=== PATIENT | male | born 1960 ===

== ENCOUNTER 2023-10-03 10:34 | Outpatient (REF) | payer BC, SELFPAY ==
[2023-10-03 13:57] LABS: Estimated Average Glucose 137 mg/dL; Hemoglobin A1c % 6.4 % (<6.0)
[2023-10-03 14:19] LABS: Alanine Aminotransferase 23 U/L (0-40); Albumin Level 4.2 g/dL (3.5-5.0); Alkaline Phosphatase 65 U/L (39-117); Anion Gap 11 (12-20); Aspartate Amino Transferase 16 U/L (5-37); Bilirubin Total 0.5 mg/dL (0.0-1.0); Blood Urea Nitrogen 11 mg/dL (9-16); Carbon Dioxide 26 mmol/L (22-29); Chloride 105 mmol/L (96-108); Cholesterol 251 mg/dL (<200); Estimated Glomerular Filt Rate > 60; Glucose Random 111 mg/dL (60-115); HDL Cholesterol 41 mg/dL (>40); LDL Cholesterol Calculated 162 mg/dL (<100); Potassium 3.9 mmol/L (3.3-5.1); Sodium 138 mmol/L (135-145); Total Protein 7.6 g/dL (6.5-8.0); Triglycerides 244 mg/dL (<150)
== END 2023-10-03 10:35 | disposition home or self-care (01) ==
LOC: HO.HHCL 10:34
PROVIDERS: Visit Provider General Practice
DX: Z00.00 Encounter for general adult medical examination without abnormal findings (principal); Z13.6 Encounter for screening for cardiovascular disorders
CPT/HCPCS: 36415; 80053; 80061; 83036

== ENCOUNTER 2023-11-21 14:48 | Outpatient (REF) | payer BC, SELFPAY ==
--- NOTE | ~2023-11-21 | XR_ITS ---
EXAMINATION: XR ELBOW, LEFT CLINICAL INFORMATION: Injury. Fall one week ago COMPARISON: None available. TECHNIQUE: AP, lateral, and oblique views of the left elbow. FINDINGS: There is a large joint effusion. A small ossific density is seen in the region of the coronoid process on the lateral view and adjacent to the capitellum on one of the oblique views suggestive of a small chip fracture, likely of the capitellum. Joint spaces are within normal limits. XR/XR elbow LT min 3V IMPRESSION: 1. Large joint effusion. 2. Probable small chip fracture of the capitellum of the ulna. CT scan could be obtained for further evaluation.
== END 2023-11-21 14:49 | disposition home or self-care (01) ==
LOC: HO.HHCX 14:48
PROVIDERS: Visit Provider Registered Nurse
DX: M25.522 Pain in left elbow (principal)
CPT/HCPCS: 73080

== ENCOUNTER 2024-01-30 12:15 | Outpatient (REF) | payer BC, SELFPAY ==
[2024-01-30 13:59] LABS: Ferritin 382 ng/mL (20-250)
== END 2024-01-30 12:16 | disposition home or self-care (01) ==
LOC: HO.HHCL 12:15
PROVIDERS: Visit Provider General Practice
DX: A08.11 Acute gastroenteropathy due to Norwalk agent (principal)
CPT/HCPCS: 36415; 82728

== ENCOUNTER 2024-03-14 13:31 | Outpatient (REF) | payer BC, SELFPAY ==
[2024-03-14 16:48] LABS: Ferritin 382 ng/mL (20-250)
== END 2024-03-14 13:32 | disposition home or self-care (01) ==
LOC: HO.HHCL 13:31
PROVIDERS: Visit Provider General Practice
DX: A08.11 Acute gastroenteropathy due to Norwalk agent (principal)
CPT/HCPCS: 36415; 82728

== ENCOUNTER 2024-10-22 14:09 | Outpatient (REF) | payer BC, SELFPAY ==
[2024-10-22 16:11] LABS: MANUAL DIFF FLAG NO
[2024-10-22 16:17] LABS: Basophils Absolute Auto 0.1 X10*3/uL (0.0-0.2); Eosinophils Absolute Auto 0.2 X10*3/uL (0.0-0.4); Eosinophils Percent Auto 2.5 % (0-4); Hemoglobin 15.9 g/dl (14.0-18.0); Imm Gran Abs Auto 0.02 X10*3/uL (0.00-0.03); Imm Gran Pct Auto 0.3 % (0.0-0.4); Lymphocytes Percent Auto 32.9 % (20-40); Mean Corpuscular HGB Conc 36.1 g/dl (31.0-36.0); Mean Corpuscular Hemoglobin 31.6 pg (27.0-33.0); Mean Corpuscular Volume 87.5 fL (80.0-98.0); Mean Platelet Volume 12.1 fL (9.4-12.4); Monocytes Absolute Auto 0.7 X10*3/uL (0.1-1.2); Monocytes Percent Auto 11.8 % (2-11); Neutrophils Absolute Auto 3.1 x10*3/uL (2.0-8.3); Neutrophils Percent Auto 51.5 % (45-73); Platelet Count 211 X10*3/uL (160-400); Red Blood Count 5.03 X10*6/uL (4.60-5.80); Red Cell Distribution Width 12.3 % (11.0-16.0)
--- OUTSIDE RECORDS SUMMARY | 2024-10-22 16:55 | XMS_ITS | Clinical Summary ---
Author Organization [email or web address] Address [address] [facility] [address] [place] [address] Care Team Providers Care Time Clock Mechanic Name Role Phone Trang Anthony MD Primary Care Provider [phone] Allergies Active Allergy Reactions Criticality Noted Date Comments Penicillin V Rash Low 11/20/2008 Medications Blood Pressure Monitoring (Blood Pressure Cuff) miscIndications:E levated blood pressure reading in office without diagnosis of hypertension 1 each in the morning. 1 each 4 Active fish oil ([place]-3) 500 MG capsule Take 1 capsule (500 mg) by mouth in the morning. 180 capsule 3 4 Active ibuprofen 600 MG tabletIndications :Left elbow pain TAKE 1 TABLET BY MOUTH EVERY 8 HOURS FOR PAIN 30 tablet 1 4 Active acetaminophen (Tylenol) 325 MG tablet Take 650 mg by mouth. 7 Active Active Problems Problem Noted Date Diagnosed Date Elevated ferritin 04/18/2024 Assessment & Plan (04/18/2024 12:56 PM EDT): No clear reason for elevated ferritin, he declines to have his blood drawn currently due to recent hematoma after blood draw He prefers to continue to eat healthfully, exercise and recheck his ferritin and transferrin saturation after his colonoscopy is complete Prostate carcinoma 04/14/2024 Risk for coronary artery dis ease greater than 20% in next 10 years 02/03/2024 Overview (02/03/2024): Per ACC calculator Assessment & Plan (02/03/2024 8:22 AM EDT): Pt declines prescription of statin medication citing concerns over side effects Willing to take fish oil daily, continue to do some and will recheck lipids in 6-12 months Healthy adult on routine physical examination Elevated blood pressure read ing in office without diagnosis of hypertension 10/03/2023 Assessment & Plan (10/03/2023 11:24 AM EDT): BP cuff ordered to our pharmacy, check BP daily May need low dose ACEi/ARB Urge incontinence of urine 10/03/2023 Assessment & Plan (10/03/2023 11:25 AM EDT): Will refer to urology, symptoms are bothersome and he has not been seen for them Change in stool caliber 10/03/2023 Assessment & Plan (10/03/2023 11:27 AM EDT): Change in stool caliber and rectal pain x months, no visible hemorrhoids Hydrocele 06/03/2021 Overview (10/03/2023): [facility] Impaired fasting glucose 03/07/2019 Sleep apnea 04/19/2016 Overview (10/03/2023): CPAP Assessment & Plan (02/03/2024 8:24 AM EDT): Needs to requalify for CPAP as he has not used it in over a year Would benefit from titration study for current settings I will order CPAP and supplies based on results on hospital- performed titration study He understand the links between untreated KOTA and HTN, lung disease, obesity, and daytime somnolence Assessment & Plan (10/03/2023 11:22 AM EDT): Needs new CPAP supplies, will write order when we know what kind of machine he has and who the supplier is Hard of hearing 03/25/2016 Hyperlipidemia 12/10/2008 History of prostate cancer 11/20/2008 Overview (10/03/2023): History of prostatectomy Resolved Problems Problem Noted Date Diagnosed Date Resolved Date Class 1 obesity 04/14/2024 04/18/2024 Encounters Date Type Department Care Team Description 10/22/2024 2:15 PM EDT Office Visit [facility] MEDICINE [address] [place] [id number] Trang Anthony MD Elevated ferritin; Dietary counseling; Exercise counseling; Class 1 obesity with serious comorbidity and body mass index (BMI) of 30.0 to 30.9 in adult, unspecified obesity type 10/22/2024 Travel 10/12/2024 Patient Outreach [address] [phone] Trang Anthony MD 08/23/[address] [address] Shannon Lopez [place] recall from Last 3 Months Immunizations Name Administration Dates Next Due TD (adult), 2 Lf tetanus tox oid, preservative free, adsorbed 03/14/2020 Td (adult) 03/14/2020 Tdap 11/20/2008 Social History Tobacco Use Types Packs/Day Years Used Date Smoking Tobacco: Never Passive Smoke Exposure: Never Smokeless Tobacco: Never Alcohol Use Standard Drinks/Week Comments Never 0 (1 standard drink = 0.6 oz pur e alcohol) Depression Answer Date Recorded Patient Health Questionnaire-9 Score 0 10/03/2023 Patient Health Questionnaire-9 Score 0 10/03/2023 Last PHQ-9: Questionnaire Data Not on file 0 10/03/2023 Housing Stability Answer Date Recorded What is your housing situation today? I have jonathan garcia 10/12/[address] you li ve. Do you have problems with any of the following? None of the above 10/12/2024 Food Insecurity Answer Date Recorded Within the past 12 months, y ou worried that your food would run out before you got money to buy more: Never True 10/12/2024 Within the past 12 months,th e food you bought just didn't last and you didn't have enough money to get more: Never True Transportation Answer Date Recorded In the past 12 months, has l ack of transportation kept you from medical appts, meetings, work or from getting things needed for daily living? No 10/12/2024 Utilities Answer Date Recorded In the past 12 months, has t he electric, gas, oil or water company threatened to shut off services in your home? No 10/12/2024 Depression Answer Date Recorded Patient Health Questionnaire-2 Score 0 10/22/2024 Internet Access Answer Date Recorded Internet Access Q1 Yes 10/12/2024 Internet Access Q2 Not on file 10/12/2024 Sex and Gender Information Value Date Recorded Sex Assigned at Male 08/10/2023 11:27 AM EST Legal Sex Male 11:20 AM EST Gender Identity Male 08/10/2023 11:27 AM EST Sexual Orientation Straight 08/10/2023 11 :27 AM EST Last Filed Vital Signs Vital Sign Reading Time Taken Comments Blood Pressure 134/73 10/22/2024 2:06 PM EDT Pulse 64 10/22/2024 1:46 PM EDT Temperature 36.4 ??C (97.6 ??F) 10/22/2024 1:46 PM ED T Respiratory Rate 15 10/22/2024 1:46 PM EDT Oxygen Saturation 97% 10/22/2024 1:46 PM EDT Inhaled Oxygen Concentration - - Weight 78.4 kg (172 lb 12.8 oz) 10/22/2024 1:46 PM EDT Height 160 cm (5' 3 ) 10/22/2024 1:46 PM EDT Body Mass Index 30.61 10/22/2024 1:46 PM EDT Plan of Treatment Health Maintenance Due Date Last Done Comments CT Colonography 1959 Colonoscopy 1959 Colorectal Cancer Screening 1959 FIT DNA/Cologuard 1959 FIT 1959 FOBT 1959 Sigmoidoscopy 1959 Alcohol/Substance Use Screening 1971 Hepatitis C Screening 1977 Pneumococcal Vaccine: 50+ Years (1 of 1 - PCV) 2009 Zoster Vaccines (1 of 2) 2009 COVID-19 Vaccine (3 - 2023-2 5 season) 2024 01/17/2021, 12/20/2020 Influenza Vaccine (#1) 2024 SDOH Screening 10/12/2025 10/12/2024 Depression Screening 10/22/2025 10/22/2024, 10/03/2023 Tobacco Screening 10/22/2025 10/22/2024 Lipid Panel 10/02/2028 10/03/2023 DTaP/Tdap/Td Vaccines (4 - T d or Tdap) 03/14/2030 03/14/2020, 03/14/2020, 11/20/2008 RSV Patients and Patients Aged 60 years or older (1 - 1-dose 75+ series) 2034 HIB Vaccines Aged Out No longer eligi ble based on patient's age to complete this topic HPV Vaccines Aged Out No longer eligi ble based on patient's age to complete this topic Hepatitis A Vaccines Aged Out No long er eligible based on patient's age to complete this topic Hepatitis B Vaccines Aged Out No long er eligible based on patient's age to complete this topic IPV Vaccines Aged Out No longer eligi ble based on patient's age to complete this topic Meningococcal Vaccine Aged Out No ange mike eligible based on patient's age to complete this topic RSV under 20 months Aged Out No longe r eligible based on patient's age to complete this topic Rotavirus Vaccines Aged Out No longer eligible based on patient's age to complete this topic Procedures Procedure Name Priority Date/Time Associated Diagnosis Comments CBC WITH AUTO DIFFERENTIAL Routine 10/22/2024 2:10 PM EDT Elevated ferritin LIPID PANEL, STANDARD Routine 10/03/2023 10:38 AM EDT Healthy adult on routine physical examination from Last 3 Months or Most Recently Relevant to Health Maintenance Results * (ABNORMAL) CBC auto differential (10/22/2024 2:10 PM EDT) White Blood Count 6.0 4.8 - 10.8 X10*3/uL [facility] Red Blood Count 5.03 4.60 - 5.80 X10*6/uL [facility] Hemoglobin 15.9 14.0 - 18.0 g/dl [facility] Hematocrit 44.0 42.0 - 52.0 % [facility] Mean Corpuscular Volume 87.5 80.0 - 98.0 fL [facility] Mean Corpuscular Hemoglobin 31.6 27.0 - 33.0 pg [facility] Mean Corpuscular HGB Conc 36.1(H) 31.0 - 36.0 g/dl [facility] Red Cell Distribution Width 12.3 11.0 - 16.0 % [facility] Platelet Count 211 160 - 400 X10*3/uL [facility] Mean Platelet Volume 12.1 9.4 - 12.4 fL [facility] Neutrophils Percent Auto 51.5 45 - 73 % [facility] Imm Gran Pct Auto 0.3 0.0 - 0.4 % [facility] Lymphocytes Percent Auto 32.9 20 - 40 % [facility] Monocytes Percent Auto 11.8(H) 2 - 11 % [facility] Eosinophils Percent Auto 2.5 0 - 4 % [facility] Basophils Percent Auto 1.0 0 - 2 % [facility] NRBC Pct Auto 0.0 0.0 - 0.2 /100WBC [facility] Neutrophils Absolute Auto 3.1 2.0 - 8.3 x10*3/uL [facility] Imm Gran Abs Auto 0.02 0.00 - 0.03 X10*3/uL [facility] Lymphocytes Absolute Auto 2.0 1.2 - 4.9 X10*3/uL [facility] Monocytes Absolute Auto 0.7 0.1 - 1.2 X10*3/uL [facility] Eosinophils Absolute Auto 0.2 0.0 - 0.4 X10*3/uL [facility] Basophils Absolute Auto 0.1 0.0 - 0.2 X10*3/uL [facility] NRBC Abs Auto 0.000 0.0 - 0.012 X10*3/uL [facility] Blood Venous blood specimen / Unknown 10/22/2024 2:10 PM EDT 10/22/2024 4:07 PM EDT us Trang Anthony MD LAB BLOOD ORDERABLES Final Res ult [facility] [address] [place] [phone] * (ABNORMAL) Lipid Panel, Standard (10/03/2023 10:38 AM EDT) Triglycerides 244(H) <150 mg/dL [facility] Comment:Desirable Triglyceri de: less than 150 mg/dLBorderline High Triglyceride 150-199 mg/dLHigh Triglyceride: 200-499 mg/dLVery High Triglyceride: greater than or equal to 5OO mg/dL Cholesterol 251(H) <200 mg/dL [facility] Comment:Desirable Cholestero l: less than 200 mg/dLBorderline High Cholesterol: 200-239 mg/dLHigh Cholesterol: greater than 239 mg/dL LDL Cholesterol Calculated 162(H) <100 mg/dL [facility] Comment:Desirable LDL: less than 100 mg/dLNear Optimal/Above Optimal LDL: 110- 129 mg/dLBorderline High LDL: 130-159 mg/dLHigh LDL: 160-189 mg/dLVery High LDL: greater than or equal to 190 mg/dL HDL Cholesterol 41 >40 mg/dL [facility] Comment:Desirable HDL: great er than 40 mg/dL Note: This HDL assay may give artificially low results in patients with liver disease. Blood Venous blood specimen / Unknown 10/03/2023 10:38 AM EDT 10/03/2023 1:06 PM EDT us Trang Anthony MD LAB BLOOD ORDERABLES Final Res ult [facility] [address] [place] [phone] from Last 3 Months or Most Recently Relevant to Health Maintenance Insurance BS PPO MEDICARE Care Teams Time Clock Mechanic Relationship Specialty Start Date End Date Trang Anthony MD [address] [place] [id number] PCP - General Family Medicine 08/11/23
--- OUTSIDE RECORDS SUMMARY | 2024-10-22 16:56 | XMS_ITS | Encounter Summary ---
Author Organization [employer] Address [address] [facility] 7[address] [place] [address] Care Team Providers Care Die Trouble Shooter Name Role Phone Trang Anthony MD Primary Care Provider [phone] Encounter Details Date Type Department Care Team ([facility] st Contact Info) Description 10/05/2023 Orders Only [facility] MEDICINE [address] [place], [place] [phone] Trang Anthony MD [address] [place], [place] [phone] Social History Tobacco Use Types Packs/Day Years [...] housing situation today? I have jonathan garcia 09/23/[address] you li ve. Do you have problems with any of the following? None of the above 09/23/2023 Food Insecurity Answer Date Recorded Within the past 12 months, y ou worried that your food would run out before you got money to buy more: Never True 09/23/2023 Within the past 12 months,th e food you bought just didn't last and you didn't have enough money to get more: Never True 02/2024 Transportation Answer Date Recorded In the past 12 months, has l ack of transportation kept you from medical appts, meetings, work or from getting things needed for daily living? No 09/23/2023 Utilities Answer Date Recorded In the past 12 months, has t he electric, gas, oil or water company threatened to shut off services in your home? No 09/23/2023 Depression Answer Date Recorded Patient Health Questionnaire-2 Score 0 10/03/2023 Sex and Gender Information Value Date Recorded Sex Assigned at Male 08/10/2023 11:27 AM EST Legal Sex Male 11:20 AM EST Gender Identity Male 08/10/2023 11:27 AM EST Sexual Orientation Straight 08/10/2023 11 :27 AM EST documented as of this encounter Plan of Treatment Not on file documented as of this encounter Visit Diagnoses Not on filedocumented in this encounter Additional Health Concerns Assessment Noted Time PHQ-9 Depression Total Score: 0 10/03/19 9:42 AM EDT documented as of this encounter Care Teams Die Trouble Shooter Relationship Specialty Start Date End Date Trang Anthony MD [address] [place] [address] PCP - General Family Medicine 08/11/23 documented as of this encounter
--- OUTSIDE RECORDS SUMMARY | 2024-10-22 16:56 | XMS_ITS | Encounter Summary ---
Author Organization [employer] Address [address] [facility] 7t [place] [address] Care Team Providers Care Route Clerk Name Role Phone Trang Anthony MD Primary Care Provider [phone] Reason for Visit * Reason Comments Hypertension Encounter Details Date Type Department Care Team ([facility] st Contact Info) Description 10/22/2024 2:15 PM EDT Office Visit [facility] MEDICINE [address] [place], [place] [phone] Trang Anthony MD [address] [place], [place] [phone] Elevated ferritin; Dietary counseling; Exercise counseling; Class 1 obesity with serious comorbidity and body mass index (BMI) of 30.0 to 30.9 in adult, unspecified obesity type Social History Tobacco Use Types Packs/Day Years [...] AM EST documented as of this encounter Last Filed Vital Signs Vital Sign Reading [...] Mass Index 30.61 10/22/2024 1:46 PM EDT documented in this encounter Plan of Treatment Scheduled Orders Name Type Priority Associated Diagnoses Orde r Schedule Ferritin Lab Routine Elevated ferritin Expected: 10/22/2024, Expires: 10/22/2025 CBC auto differential Lab Routine Elevated ferritin Expected: 10/22/2024 (Approximate), Expires: 10/22/2025 documented as of this encounter Visit Diagnoses Diagnosis Elevated ferritin Other abnormal blood chemistry Dietary counseling Dietary surveillance and counseling Exercise counseling Class 1 obesity with serious comorbidity and body mass index (BMI) of 30.0 to 30.9 in adult, unspecified obesity type documented in this encounter Additional Health Concerns Assessment Noted Time PHQ-9 Depression Total Score: 0 10/03/19 24 9:42 AM EDT documented as of this encounter Care Teams Route Clerk Relationship Specialty Start Date End Date Trang Anthony MD [address] [place] [address] PCP - General Family Medicine 08/11/23 documented as of this encounter
--- OUTSIDE RECORDS SUMMARY | 2024-10-22 16:56 | XMS_ITS | Encounter Summary ---
Author Organization [employer] Address [address] [facility] 7[address] [place] [address] Care Team Providers Care Side Panel Padder Name Role Phone Trang Anthony MD Primary Care Provider [phone] Encounter Details Date Type Department Care Team (Latest Contact Info) Description 10/22/2024 Travel Social History Tobacco Use Types Packs/Day Years [...] documented as of this encounter Care Teams Side Panel Padder Relationship Specialty Start Date End Date Trang Anthony MD [address] [place] [id number] PCP - General Family Medicine 08/11/23 documented as of this encounter
[2024-10-22 19:16] LABS: Ferritin 378 ng/mL (20-250)
[2024-10-23 23:44] LABS: Transferrin 265 mg/dL (188-341)
== END 2024-10-22 14:10 | disposition home or self-care (01) ==
LOC: HO.HHCL 14:09
PROVIDERS: Visit Provider General Practice
DX: R79.89 Other specified abnormal findings of blood chemistry (principal)
CPT/HCPCS: 36415; 82728; 84466; 85025

== ENCOUNTER 2024-12-25 15:17 | Outpatient (REF) | payer MEDICARE, SELFPAY | END 2024-12-25 15:18 | disposition home or self-care (01) | LOC: HO.SH 15:17 | PROVIDERS: Visit Provider General Practice | DX: Z01.118 Encounter for examination of ears and hearing with other abnormal findings (principal); H90.3 Sensorineural hearing loss, bilateral | CPT/HCPCS: 92557 ==

== ENCOUNTER 2024-12-25 16:47 | Outpatient (REF) | payer SELFPAY ==
--- NOTE | 2024-12-27 09:30 | MHC.AU.HA2 ---
Hearing Instrument Fitting- Adult- Binaural Date of Visit: 12/25/24 Hearing Instruments Dispensed: Right Ear: Make, Model, Color, Serial Number: Phonnayan Martinezeo [id number]-[id number] SN: [id number] Fisher Eel Spear Repair Warranty: N/A Fisher Eel Spear Loss and Damage Warranty: N/A [facility] Service Plan: N/A Battery Size: Rechargeable Station Operator/Slim Tube: 2M Earmold/Dome/CShell/SlimTip: Small power dome (no retention tail) Type of Wax Guard: CeruShield Left Ear: Make, Model, Color, Serial Number: Phonak Juaneo [id number] SN: [id number] Fisher Eel Spear Repair Warranty: N/A Fisher Eel Spear Loss and Damage Warranty: N/A [facility] Service Plan: N/A Battery Size: Rechargeable Station Operator/Slim Tube: 2M Earmold/Dome/CShell/SlimTip: Small power dome (no retention tail) Type of Wax Guard: CeruShield Accessories/Assistive Technology: Surgical Brace Maker Summary of Fitting: Long-time JALLOH user, since 2005. Previous patient at clinic in [place], unsure name. Had Oticon OPN 1 miniRITE-R hearing aids with open domes from 2017, reportedly intermittent, not functioning properly. Also had Phonak Audeo L70-RT hearing aids with open domes donated to him by ex-. Hearing recently evaluated at [facility]. New HAs recommended but too expensive. Addi hoping Medicare insurance will cover HAs here. Advised Medicare does not have JALLOH benefit. Discussed options/pricing - Addi opted to have Phonak HAs reprogrammed for him. Switched to small power domes. Ran feedback analyzer and real ear measures. Comfortable at real ear settings. As previous JALLOH user, Addi already familiar with general maintenance, care, and use. He did not want to schedule additional follow up. Advised follow up within 2-3 weeks will be covered under today's fitting fee. Otherwise, any future appointments will incur [id number]. *Called Yenny to try to transfer name of patient associated with devices and obtain warranty information. Per Oneil in customer service, Yenny requires name to be changed by original provider of the HAs; therefore, Addi's ex-, Bibiana Juan, would need to contact the clinic she obtained them from and ask them to call Yenny to change name. Once name is changed, all warranties are voided. Called Addi to inform him. Recommendations: Please call our clinic with any questions or concerns. Diagnosis Code(s): Primary Diagnosis: H90.3 Bilateral Sensorineural Hearing Loss Signature: Provider: Nathan Wyatt, [facility]
== END 2024-12-25 16:48 | disposition home or self-care (01) ==
LOC: HO.HAP 16:47
PROVIDERS: Visit Provider General Practice
DX: Z46.1 Encounter for fitting and adjustment of hearing aid (principal); H90.3 Sensorineural hearing loss, bilateral
CPT/HCPCS: 92593; V5020

== ENCOUNTER 2024-12-27 12:54 | Outpatient (REF) | payer SELFPAY ==
--- NOTE | 2024-12-27 13:32 | MHC.AU.HA3 ---
Hearing Instrument Follow-Up- Binaural Date of Visit: 12/27/24 Right Ear: Primitivo, Model, Color, Serial Number: Yenny Chinchilla [id number]-[id number] SN: [id number] Presser Machine Repair Warranty: N/A Presser Machine Loss and Damage Warranty: N/A [facility] Service Plan: N/A Battery Size: Rechargeable Elementary Instructional Coach/Slim Tube: 2M Earmold/Dome/CShell/SlimTip:Small vented dome (no retention tail) Type of Wax Guard: CeruShield Left Ear: Primitivo, Model, Color, Serial Number: Yenny Chinchilla [id number] SN: [id number] Presser Machine Repair Warranty: N/A Presser Machine Loss and Damage Warranty: N/A [facility] Service Plan: N/A Battery Size: Rechargeable Elementary Instructional Coach/Slim Tube: 2M Earmold/Dome/CShell/SlimTip: Small vented dome (no retention tail) Type of Wax Guard: CeruShield Follow-Up Summary: When speaking to Addi on the phone this morning re: changing the name associated with the HAs, he reported domes too big in ears and scheduled this appointment. Reportedly difficulty inserting power domes, feel too full in ears, echo of own voice and other sounds. Tried medium vented domes, reportedly still too big. Switched to small vented domes; however, amplification significantly cut out by feedback curve. Explained this to Addi, showing him the visual in the [employer] software. Discussed implication for hearing and balance between comfort and audibility. Recommended more time to acclimate to power domes. However, despite this recommendation, Addi opted to try small vented domes even though not appropriate based on feedback curve. Recommendations: Hearing instrument follow-up or maintenance as needed. Please contact our clinic with any questions or concerns. Patient will call if problems persist. Diagnosis Code(s): Primary Diagnosis: H90.3 Bilateral Sensorineural Hearing Loss Signature: Provider: Nathan Wyatt, [facility]
== END 2024-12-27 12:55 | disposition home or self-care (01) ==
LOC: HO.HAP 12:54
PROVIDERS: Visit Provider General Practice
DX: Z13.89 Encounter for screening for other disorder (principal)